=== PATIENT | female | born 1985 | race Two or more races ===

== ENCOUNTER 2022-11-28 17:08 | Emergency (ER) | payer BC ==
[~2022-11-28] VITALS: Ht 165.1 cm; Wt 72.6 kg
[2022-11-28] MEDS ORDERED: ETONOGESTREL-E1 EACH VG (18:12)
== END 2022-11-28 21:37 | disposition home or self-care (01) ==
LOC: ER 17:08
DX: S99.812A Other specified injuries of left ankle, initial encounter (principal); W18.30XA Fall on same level, unspecified, initial encounter; Y93.9 Activity, unspecified; Y92.481 Parking lot as the place of occurrence of the external cause; Z91.011 Allergy to milk products; Z91.040 Latex allergy status; Z88.2 Allergy status to sulfonamides